=== PATIENT | male | born 1985 | race African-American/Black ===

== ENCOUNTER 2020-05-14 05:03 | Emergency (ER) | payer SELFPAY ==
[~2020-05-14] VITALS: Ht 178 cm; Wt 72.5 kg
[2020-05-14] MEDS ORDERED: KETOROLAC 60 MG/2 ML VIAL ONE (05:21)
[2020-05-14] MEDS ORDERED: KETOROLAC 60 MG/2 ML VIAL IM ONE (05:30)
--- NOTE | 2020-05-14 05:33 | ED Cough/URI ---
General Chief Complaint: Cough/Cold/Flu Symptoms Stated Complaint: HEADACHE / RUNNY NOSE / COUGHING Nursing Triage Note: headache, soa, runny nose since 05/10/20 Sepsis Screen: No Definite Risk Source: patient Exam Limitations: no limitations (GAVI PEMBERTON MD) History of Present Illness Date Seen by Provider: May 14, 2020 Time Seen by Provider: 05:20 Initial Comments Patient is a 34-year-old male who presents to the emergency department today with a chief complaint of mild shortness of breath, headache, subjective fevers and night sweats. Symptom onset about 5 days ago. Patient states that he was exposed to some coworkers who were sick at work and told to go home and quarantined for 10 days. Patient is concerned that he might have Covid. Patient denies any earache sore throat but has had mild runny nose. He denies any chest pain or cough but has had some mild short of breath as stated. He denies any nausea, vomiting but has had decreased appetite. No diarrhea. No abdominal pain. No urinary complaints. Mild body aches. He did not get a flu shot this year. He states that he was exposed to somebody about 2 weeks ago who was Covid positive. He does not have any chronic medical conditions. He does not take any medications on a daily basis. All other review of systems reviewed and negative except as stated above. Timing/Duration: week Severity/Quality: no cough, mild Prior Episodes/Possible Cause: illness exposure Associated Symptoms: fever/chills, headache, nasal drainage, shortness of breath (GAVI PEMBERTON MD) Allergies and Home Medications Allergies Coded Allergies: honey (Verified Allergy, Unknown, 05/14/20) Patient Home Medication List Home Medication List Reviewed: Yes (GAVI PEMBERTON MD) Review of Systems Review of Systems Constitutional: see HPI, fever (Subjective) EENTM: nose congestion (Runny nose) Respiratory: short of breath Cardiovascular: no symptoms reported Gastrointestinal: other (Decreased appetite) Genitourinary: no symptoms reported Musculoskeletal: other (Mild body aches) Skin: no symptoms reported Psychiatric/Neurological: Headache (GAVI PEMBERTON MD) All Other Systems Reviewed Negative Unless Noted: Yes (GAVI PEMBERTON MD) Past Shzhpho-Hrokwn-Jwupls Hx Patient Social History Alcohol Use: Denies Use Smoking Status: Current Everyday Smoker Type Used: Cigarettes 2nd Hand Smoke Exposure: Yes Recent Infectious Disease Expo: No Recent Hopitalizations: No (GAVI PEMBERTON MD) Immunizations Up To Date Tetanus Booster (TDap): Unknown (GAVI PEMBERTON MD) Seasonal Allergies Seasonal Allergies: No (GAVI PEMBERTON MD) Past Medical History Surgeries: No Respiratory: No Cardiac: No Neurological: No Genitourinary: No Gastrointestinal: No Musculoskeletal: No Endocrine: No HEENT: No Cancer: No Psychosocial: No Integumentary: No Blood Disorders: No (GAVI PEMBERTON MD) Physical Exam Vital Signs - First Documented (IVETH WALDRON) Capillary Refill : Less Than 3 Seconds (GAVI PEMBERTON MD) Height: '" Weight: lbs. oz. kg; 22.00 BMI Method: General Appearance: WD/WN, no apparent distress Eyes: Bilateral Eye Normal Inspection, Bilateral Eye PERRL, Bilateral Eye EOMI Neck: non-tender, full range of motion, supple, normal inspection Respiratory: lungs clear, normal breath sounds, no respiratory distress, no accessory muscle use Cardiovascular: regular rate, rhythm, no murmur Gastrointestinal: non tender, soft Extremities: non-tender, normal inspection, no pedal edema, no calf tenderness, normal capillary refill Neurologic/Psychiatric: alert, normal mood/affect, oriented x 3 Skin: normal color, warm/dry (GAVI PEMBERTON MD) Progress/Results/Core Measures Suspected Sepsis Recent Fever Within 48 Hours: No Infection Criteria Present: None New/Unexplained Altered Menta: No Sepsis Screen: No Definite Risk SIRS Temperature: Pulse: 70 Respiratory Rate: 16 Blood Pressure 107 /84 Mean: 92 (GAVI PEMBERTON MD) Results/Orders Lab Results Laboratory Tests Test 05/14/20 05:26 Range/Units Coronavirus 2019 (HOMERO) Negative Negative (IVETH WALDRON) Micro Results Microbiology 05/14/20 Influenza Types A,B Antigen (BENJA) - Final, Complete (IVETH WALDRON) Medications Given in ED Current Medications Medications Dose Ordered Sig/Buster Route Start Time Stop Time Status Last Admin Dose Admin Ketorolac Tromethamine 60 mg STK-MED ONCE .ROUTE 05/14/20 05:21 05/14/20 05:27 DC 05/14/20 05:28 60 MG (IVETH WALDRON) Vital Signs/I&O 05/14/20 05/14/20 05/14/20 05:12 05:12 05:28 Temp 36.0 36.0 Pulse 70 Resp 16 B/P (MAP) 107/84 (92) Pulse Ox 97 O2 Delivery Room Air Room Air (IVETH WALDRON) Vital Signs/I&O Capillary Refill : Less Than 3 Seconds (GAVI PEMBERTON MD) Blood Pressure Mean: 92 Progress Note : Time: 05:32 Progress Note 34-year-old male presents with a chief complaint of mild shortness of breath, body aches headache and runny nose. Evaluation today includes a physical exam, rapid Covid swab, influenza swab. Patient is treated in the emergency department with 60 mg of Toradol IM. He clinically appears well. No clinical or objective findings to warrant further investigation from the ED. Patient has no findings concerning for sepsis. Lungs are clear, good respiratory effort. Normal pulse ox. Normal blood pressure. Normal heart rate. Disposition to be determined after Covid and flu swab. (GAVI PEMBERTON MD) Progress Note : Time: 05:57 Progress Note Assumed care of the patient at shift change. COVID-19 swab pending. Patient is on track to discharge home once results are available. (IVETH WALDRON) Departure Impression Primary Impression: Upper respiratory infection Qualified Codes: J06.9 - Acute upper respiratory infection, unspecified Disposition: 01 HOME, SELF-CARE Condition: Stable Departure-Patient Inst. Decision time for Depature: 06:00 (IVETH WALDRON) Patient Instructions: Viral Upper Respiratory Infection, Adult (DC) Add. Discharge Instructions: Drink plenty of fluids. Tylenol and Motrin as necessary for body aches or fever. Vapor rubs such as Vicks or Mentholatum. Sometimes the initial test can miss the diagnosis of COVID-19 so we recommend you stay on quarantine until you are symptom-free for 24 hours without using medicines to mask your symptoms such as Tylenol or ibuprofen. All discharge instructions reviewed with patient and/or family. Voiced understanding. Work/School Note: Work Release Form Date Seen in the Emergency Department: May 14, 2020 Return to Work: May 16, 2020 Restrictions: No Restrictions Other Restrictions Listed Below: Off quarantine when 24 hours symptom-free without medicine to mask symptoms GAVI PEMBERTON MD May 14, 2020 05:33 IVETH WALDRON May 14, 2020 05:58
[2020-05-14 06:10] VITALS: BP 117/68
== END 2020-05-14 06:19 | disposition home or self-care (01) ==
LOC: ER 05:07
DX: J06.9 Acute upper respiratory infection, unspecified (principal); F17.210 Nicotine dependence, cigarettes, uncomplicated; Z20.822 Contact with and (suspected) exposure to COVID-19
CPT/HCPCS: 87804; U0002; 87635